=== PATIENT | female | born 1990 | race Asian ===

== ENCOUNTER 2023-05-21 18:19 | Emergency (ER) | payer OTHER ==
[~2023-05-21] VITALS: Ht 172.7 cm; Wt 100.0 kg
[2023-05-21 18:24] VITALS: O2SAT 99
[2023-05-21] MEDS ORDERED: LACTATED RINGERS 1,000 ML IV SCH (20:00)
[2023-05-21] MEDS ORDERED: ACETAMINOPHEN 325MG TABLET PO ONE (20:00)
[2023-05-21] MEDS ORDERED: METOCLOPRAMIDE HCL 10MG/2ML VIAL IV ONE (20:00)
[2023-05-21 21:31] VITALS: BP 123/84; PULSE 64; RESP 16; TEMP 98.9
[2023-05-21] MEDS ORDERED: OXYM30SP26 BOTHNSTRLS (23:58)
== END 2023-05-22 00:25 | disposition home or self-care (01) ==
LOC: ER 19:40
DX: R51.9 Headache, unspecified (principal)
CPT/HCPCS: 70450; 96374; 99285; J2765; Z7610 ×2